=== PATIENT | female | born 1960 | race Two or more races ===

== ENCOUNTER 2018-12-28 15:29 | Emergency (ER) | payer SELFPAY ==
[~2018-12-28] VITALS: Ht 160 cm; Wt 9.1 kg
[~2018-12-28 15:29] MED LIST: BACTROBAN 2% OI15 GM TOPIC; LEVOTHYROXINE150 MCG ORAL; MACROBID100 MG ORAL; METFORMIN HCL1000 M1 ORAL; NORCO 5-325 TA1 EACH ORAL; ZOFRAN4 MG ORAL
[2018-12-28 15:49] VITALS: BP 113/70
[2018-12-28] MEDS ORDERED: Albuterol/Ipratropium 3ml neb HHN ONE ×2 (16:30→16:45)
--- NOTE | 2018-12-28 17:00 | NUR ---
ED Nurse Note: Patient presents to ER due to persistent cough, flu-like symptoms. Reports no fever or chills. Patient resting in chair using cell phone. Regular, unlabored breathing noted. Reports no SOB, dyspnea. Placed in chair.
--- NOTE | 2018-12-28 17:16 | Emergency Room Report ---
History of Present Illness General Chief Complaint: Upper Respiratory Illness Source: Patient Present Illness HPI hx of COPD and is a current smoker Allergies: Coded Allergies: PENICILLINS (Unverified Allergy, Unknown, 12/27/14) Patient History Last Menstrual Period: na Nursing Documentation-PMH Past Medical History: No History, Except For Hx Diabetes: Yes Physical Exam Vital Signs Date Time Temp Pulse Resp B/P (MAP) Pulse Ox O2 Delivery O2 Flow Rate FiO2 12/28/18 15:49 98.1 61 20 113/70 96 Room Air 12/28/18 16:35 21 Medical Decision Making PA Attestation Dr. espinoza is my supervising Physician whom patient management has been discussed with. Diagnostic Impression: Primary Impression: Bronchitis Additional Impressions: Nasal sinus congestion Acute bronchitis with COPD ER Course pt. requires abx. Pt. presents to the ED c/o dry cough and chest congestion x [ ] day(s). pt. requests steriod burst. Ddx considered but are not limited to URI, pneumonia, PE, strep pharyngitis, meningitis. Vital signs: Pt.is afebrile VS are WNL H&PE are most consistent with bronchitis ORDERS: none required at this time, the diagnosis is clinical ED INTERVENTIONS: None required at this time. DISCHARGE: At this time pt. is stable for d/c to home. Will provide printed patient care instructions, and any necessary prescriptions. Care plan and follow up instructions have been discussed with the patient prior to discharge. Last Vital Signs Date Time Temp Pulse Resp B/P (MAP) Pulse Ox O2 Delivery O2 Flow Rate FiO2 12/28/18 17:01 62 18 Room Air 12/28/18 16:54 99 21 12/28/18 15:49 98.1 113/70 Disposition: HOME, SELF-CARE Condition: Stable Scripts Levofloxacin* (LEVAQUIN*) 750 Mg Tablet 750 MG ORAL DAILY for 7 Days, #7 TAB Prov: Ann Olivas 12/28/18 Albuterol Sulfate* (ALBUTEROL SULFATE MDI*) 8.5 Gm Hfa.aer.ad 2 PUFF INH Q4H, #1 INH 1 Refill Prov: Ann Olivas 12/28/18 Cetirizine Hcl/Pseudoephedrine (ZYRTEC-D TABLET) 1 Each Tab.er.12h 1 EACH ORAL Q12HR, #20 TAB Prov: Ann Olivas 12/28/18 Patient Instructions: Acute Bronchitis, [id number] Additional Instructions: Take medications as directed. Follow up with a Primary Care Provider in 3-5 days, even if your symptoms have resolved. --Please review list of primary care clinics, if you do not already have a primary care provider Return sooner to ED if new symptoms occur, or current symptoms become worse. - Please note that this Emergency Department Report was dictated using [email or web address] technology software, occasionally this can lead to erroneous entry secondary to interpretation by the dictation equipment. Ann Olivas Dec 28, 2018 17:16
[2018-12-28] MEDS ORDERED: LEVAQUIN750 MG ORAL (17:19)
[2018-12-28] MEDS ORDERED: ZYRTEC-D TABLE1 EACH ORAL (17:19)
[2018-12-28] MEDS ORDERED: ALBUTEROL SULF8.5 GM INH (17:19)
[2018-12-28 17:31] VITALS: BP 121/72
--- NOTE | 2018-12-28 17:31 | NUR ---
ED Nurse Note: Reports no SOB or dysnea. Regular, unlabored breathing noted.
[2018-12-28] MEDS ORDERED: Hydrocortisone 2.5% Oint 30gm TOPIC ONE (18:00)
--- NOTE | 2018-12-28 18:05 | NUR ---
ER DISCHARGE NOTE: Patient is cleared to be discharged per ERMD, pt is aox4, on room air, with stable vital signs. pt was given dc instructions, pt was able to verbalize understanding, pt id band removed. pt is able to ambulate with steady gait. pt took all belongings.
== END 2018-12-28 17:31 | disposition home or self-care (01) ==
LOC: EMR 16:24
DX: J20.9 Acute bronchitis, unspecified (principal); J44.0 Chronic obstructive pulmonary disease with (acute) lower respiratory infection; E11.9 Type 2 diabetes mellitus without complications; Z88.0 Allergy status to penicillin
CPT/HCPCS: 94640; 94664; 99284; J7620